=== PATIENT | female | born 1990 | race Two or more races ===

== ENCOUNTER 2018-04-19 16:59 | Observation (INO) | payer OTHER ==
[2018-04-19 18:53] LABS: ABS Basophils 0.1 10^3/ul (0-0.2); ABS Eosinophils 0.1 10^3/ul (0-0.6); ABS Lymphocytes 2.5 10^3/ul (1.0-4.8); ABS Monocytes 0.4 10^3/ul (0-0.8); ABS Neutrophils 4.4 10^3/ul (1.5-7.7); ABS Nucleated RBC 0 10^3/ul; Eosinophil % 1.1 % (0-6); Hematocrit 40 % (35-47); Hemoglobin 13.5 g/dl (12.0-16.0); Lymphocyte % 33.6 % (25-47); Mean Corpuscular HGB Conc 34 g/dl (31-36); Mean Corpuscular Hemoglobin 30 pg (27-31); Mean Corpuscular Volume 89 fL (80-97); Mean Platelet Volume 8.2 um3 (7.4-10.4); Nucleated Red Blood Cells % 0; Platelet Count 283 10^3/ul (150-450); Red Cell Distribution Width 13 % (10.5-15); White Blood Count 7.4 10^3/ul (3.5-10.8)
[2018-04-19 19:06] LABS: INR 0.89 (0.77-1.02)
[2018-04-19 19:16] LABS: EGFR Non-African American 83.1 (>60)
--- NOTE | 2018-04-19 19:36 | RAD ---
INDICATION: Occipital headache and right face/arm/leg numbness COMPARISON: None. TECHNIQUE: Contiguous axial sections of the brain were obtained from the skull base to the vertex without contrast. FINDINGS: The ventricles, cisterns and sulci are within normal limits. The lorenzana-white matter differentiation is adequately maintained and there is no sulcal effacement. No significant focal abnormality or mass effect is present. There is no evidence for intracranial hemorrhage. No significant focal osseous abnormality is present. The visualized portion of the paranasal sinuses appear clear. The mastoid air cells are well aerated bilaterally. IMPRESSION: Normal CT of the brain.
[2018-04-19] MEDS ORDERED: Acetaminophen TAB* 325 MG PO PRN (21:50)
[2018-04-19] MEDS ORDERED: Ondansetron INJ* 2 MG/ML VIAL IV PRN (21:50)
[2018-04-19] MEDS ORDERED: Magnesium Sulfate 2 GM IV* 2 GM/50 ML BAG IVPB ONE (21:55)
--- NOTE | 2018-04-19 21:55 | ED ---
Justine Rodgers Edward, scribed for Andre Henderson MD on 04/19/18 at 1816 . Neurological HPI - HPI Summary HPI Summary: 27 y/o female presents to the ED c/o R side leg, R arm, toes and L leg; numbness starting 2 days ago. Numbness started at R leg, then R arm 1 day ago, then bilateral toes, then L leg started today. R arm numbness @ the R forearm. The numbness is described as a change in strength, where it "feels more forced" for the pt to clench and grab things; like when the "leg goes to sleep". 2 weeks ago pt developed facial numbness due to a cyst under the pt's wisdom tooth @ the R side of her face around the eye; cyst removed and numbness mostly resolved. Associated sx: OH at the back of the head; pt states she typically gets OH more on the R lateral side of the head- this OH feels similar but is located more in the back of the head; lightheadedness with getting out of bed too quickly. - History of Current Complaint Chief Complaint: EDGeneral Stated Complaint: RT SIDE TINGLING Time Seen by Provider: 04/19/18 18:14 Hx Obtained From: Patient Onset/Duration: Started days ago - 2 days Timing: Constant Neurological Deficit Location: RUE, RLE, LLE Headache Location: Occipital (Right) Pain Intensity: 0 Character: Numbness/Tingling Aggravating: Nothing Alleviating: Nothing Associated Signs and Symptoms: Positive: Headache, Numbness, Lightheadness - Allergy/Home Medications Allergies/Adverse Reactions: Allergies Allergy/AdvReac Type Severity Reaction Status Date / Time No Known Allergies Allergy Verified 04/19/18 17:10 Home Medications: Home Medications NK [No Home Medications Reported] 04/19/18 [History Confirmed 04/19/18] PMH/Surg Hx/FS Hx/Imm Hx Previously Healthy: No Endocrine/Hematology History: Denies: Hx Anticoagulant Therapy, Hx Blood Disorders Respiratory History: Denies: Hx Asthma Musculoskeletal History: Denies: Hx Arthritis Neurological History: Denies: Hx Headaches, Hx Migraine Infectious Disease History: No Infectious Disease History: Denies: Traveled Outside the [place] in Last 30 Days - Family History Known Family History: Positive: None - Social History Alcohol Use: None Substance Use Type: Reports: None Smoking Status (MU): Never Smoked Tobacco Review of Systems Constitutional: Negative Eyes: Negative ENT: Negative Cardiovascular: Negative Respiratory: Negative Gastrointestinal: Negative Genitourinary: Negative Musculoskeletal: Negative Skin: Negative Neurological: Other - lightheadedness Positive: Headache, Numbness - R side face, R forearm, R leg and toes Psychological: Normal All Other Systems Reviewed And Are Negative: Yes Physical Exam Triage Information Reviewed: Yes Vital Signs On Initial Exam: Initial Vitals Temp Pulse Resp BP Pulse Ox 98.8 F 76 16 124/78 98 04/19/18 17:05 04/19/18 17:05 04/19/18 17:05 04/19/18 17:05 04/19/18 17:05 Vital Signs Reviewed: Yes Appearance: Positive: Well-Appearing, No Pain Distress Skin: Positive: Warm, Skin Color Reflects Adequate Perfusion, Dry Head/Face: Positive: Normal Head/Face Inspection Eyes: Positive: EOMI, ANATOLIY ENT: Positive: Normal ENT inspection Neck: Positive: Supple, Nontender Respiratory/Lung Sounds: Positive: Clear to Auscultation, Breath Sounds Present Cardiovascular: Positive: RRR Abdomen Description: Positive: Nontender, Soft Bowel Sounds: Positive: Present Musculoskeletal: Positive: Normal, Strength/ROM Intact Neurological: Positive: Sensory/Motor Intact, Alert, Oriented to Person Place, Time Psychiatric: Positive: Affect/Mood Appropriate Diagnostics - Vital Signs Vital Signs Temp Pulse Resp BP Pulse Ox 04/19/18 17:05 98.8 F 76 16 124/78 98 - Laboratory Lab Results: Lab Results 04/19/18 04/19/18 04/19/18 Range/Units 18:45 18:45 18:45 WBC 7.4 (3.5-10.8) 10^3/ul RBC 4.50 (4.00-5.40) 10^6/ul Hgb 13.5 (12.0-16.0) g/dl Hct 40 (35-47) % MCV 89 (80-97) fL MCH 30 (27-31) pg MCHC 34 (31-36) g/dl RDW 13 (10.5-15) % Plt Count 283 (150-450) 10^3/ul MPV 8.2 (7.4-10.4) um3 Neut % (Auto) 59.4 (38-83) % Lymph % (Auto) 33.6 (25-47) % Caswell % (Auto) 5.1 (0-7) % Eos % (Auto) 1.1 (0-6) % Baso % (Auto) 0.8 (0-2) % Absolute Neuts (auto) 4.4 (1.5-7.7) 10^3/ul Absolute Lymphs (auto) 2.5 (1.0-4.8) 10^3/ul Absolute Monos (auto) 0.4 (0-0.8) 10^3/ul Absolute Eos (auto) 0.1 (0-0.6) 10^3/ul Absolute Basos (auto) 0.1 (0-0.2) 10^3/ul Absolute Nucleated RBC 0 10^3/ul Nucleated RBC % 0 INR (Anticoag Therapy) 0.89 (0.77-1.02) APTT 29.5 (26.0-36.3) seconds Sodium 139 (135-145) mmol/L Potassium 4.0 (3.5-5.0) mmol/L Chloride 102 (101-111) mmol/L Carbon Dioxide 28 (22-32) mmol/L Anion Gap 9 (2-11) mmol/L BUN 16 (6-24) mg/dL Creatinine 0.83 (0.51-0.95) mg/dL Est GFR ( Amer) 100.5 (>60) Est GFR (Non-Af Amer) 83.1 (>60) BUN/Creatinine Ratio 19.3 (8-20) Glucose 106 H (70-100) mg/dL Lactic Acid (0.5-2.0) mmol/L Calcium 9.8 (8.6-10.3) mg/dL Magnesium 1.8 L (1.9-2.7) mg/dL Total Bilirubin 0.30 (0.2-1.0) mg/dL AST 22 (13-39) U/L ALT 13 (7-52) U/L Alkaline Phosphatase 49 (34-104) U/L C-Reactive Protein 7.92 (<8.01) mg/L Total Protein 7.4 (6.4-8.9) g/dL Albumin 3.9 (3.2-5.2) g/dL Globulin 3.5 (2-4) g/dL Albumin/Globulin Ratio 1.1 (1-3) TSH 2.25 (0.34-5.60) mcIU/mL Beta HCG, Quant < 0.60 mIU/mL 04/19/18 Range/Units 18:45 WBC (3.5-10.8) 10^3/ul RBC (4.00-5.40) 10^6/ul Hgb (12.0-16.0) g/dl Hct (35-47) % MCV (80-97) fL MCH (27-31) pg MCHC (31-36) g/dl RDW (10.5-15) % Plt Count (150-450) 10^3/ul MPV (7.4-10.4) um3 Neut % (Auto) (38-83) % Lymph % (Auto) (25-47) % Caswell % (Auto) (0-7) % Eos % (Auto) (0-6) % Baso % (Auto) (0-2) % Absolute Neuts (auto) (1.5-7.7) 10^3/ul Absolute Lymphs (auto) (1.0-4.8) 10^3/ul Absolute Monos (auto) (0-0.8) 10^3/ul Absolute Eos (auto) (0-0.6) 10^3/ul Absolute Basos (auto) (0-0.2) 10^3/ul Absolute Nucleated RBC 10^3/ul Nucleated RBC % INR (Anticoag Therapy) (0.77-1.02) APTT (26.0-36.3) seconds Sodium (135-145) mmol/L Potassium (3.5-5.0) mmol/L Chloride (101-111) mmol/L Carbon Dioxide (22-32) mmol/L Anion Gap (2-11) mmol/L BUN (6-24) mg/dL Creatinine (0.51-0.95) mg/dL Est GFR ( Amer) (>60) Est GFR (Non-Af Amer) (>60) BUN/Creatinine Ratio (8-20) Glucose (70-100) mg/dL Lactic Acid 0.7 (0.5-2.0) mmol/L Calcium (8.6-10.3) mg/dL Magnesium (1.9-2.7) mg/dL Total Bilirubin (0.2-1.0) mg/dL AST (13-39) U/L ALT (7-52) U/L Alkaline Phosphatase (34-104) U/L C-Reactive Protein (<8.01) mg/L Total Protein (6.4-8.9) g/dL Albumin (3.2-5.2) g/dL Globulin (2-4) g/dL Albumin/Globulin Ratio (1-3) TSH (0.34-5.60) mcIU/mL Beta HCG, Quant mIU/mL Result Diagrams: 04/19/18 18:45 04/19/18 18:45 Lab Statement: Any lab studies that have been ordered have been reviewed, and results considered in the medical decision making process. - CT BRAIN CT CT Interpretation: No Acute Changes - NORMAL CT OF THE BRAIN CT Interpretation Completed By: Radiologist Re-Evaluation - Re-Evaluation 1 Re-Evaluation Time: 19:34 Comment: discuss plan of care Course/Dx - Course Course Of Treatment: DR BARNES, NEUROLOGY, SAW THE PATIENT IN THE ED. ADMIT HOSPITALIST. - Diagnoses Provider Diagnoses: Paresthesia of right arm and leg - Physician Notifications Discussed Care Of Patient With: Benedict Barnes Time Discussed With Above Provider: 19:30 Instructed by Provider To: MD Will See In ED Discharge - Sign-Out/Discharge Documenting (check all that apply): Discharge/Admit/Transfer - Discharge Plan Condition: Stable Disposition: ADMITTED TO [facility] Referrals: No Primary Care Phys,NOPCP [Primary Care Provider] - - Billing Disposition and Condition Condition: STABLE Disposition: Admitted to [facility] The documentation as recorded by the Justine main Edward accurately reflects the service I personally performed and the decisions made by me, Andre Henderson MD.
[2018-04-19] MEDS ORDERED: Magnesium Sulfate IV* 2 GM in NS 0.9% 100 ML* 100 ML IVPB ONE (22:00)
[2018-04-19] MEDS ORDERED: NS 0.9% 100 ML* 100 ML ONE (22:05)
[2018-04-20] MEDS: AMOXICILLIN 500 MG PO SCH ×2 (00:27→09:05)
--- NOTE | 2018-04-20 02:30 | CONS ---
NEUROLOGY CONSULT REPORT: DATE OF CONSULT: 04/19/18 REQUESTING PHYSICIAN: Dr. Henderson. REASON FOR CONSULT: Numbness in the right arm and leg. HISTORY OF PRESENT ILLNESS: The patient is a 27-year-old right-handed female, who started to feel numbness in the right leg mostly in the distal part and right foot on Monday after she came back from the gym. She then had no other problems until the next morning when she woke up and after a few hours she felt also the same tingling in her distal right arm and right hand. This symptoms continued for the past few days with the fluctuating nature. She states that she usually feels the numbness more when she is lying down. Starting today, she also felt some pain in the same regions that she had numbness. In the past couple of weeks, also she had some numbness in the right side of the face, eventually after seeing a dentist she was found to have a tooth abscess for which she is taking Amoxicillin. At the time of examination she does not have numbness in the face, but states it has not completely resolved and still sometimes feels the numbness. She only has a history of what seems like to be more of a tension type headache happening every 2 weeks or so, 3-4 in intensity, a dull headache, but they do not last more than few hours as taking Tylenol or over-the- counter medications resolve those headaches. They are also not associated with photo or phonophobia. The patient has no headache currently. The patient goes to the gym regularly, but denies any injury or heavy exercise. She sometimes does cardio workout, but also lift weights up to 40 lbs for shoulder press. Denies any pain in the neck or head at this time. PAST MEDICAL HISTORY: Other than headache that was mentioned above is negative. 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 Otherwise, there is no other significant past medical history. MEDICATIONS: The patient only is on Amoxicilline now for her tooth abscess and taking control pills since she was 20. ALLERGIES: No known drug allergies. FAMILY HISTORY: No neurological disorders in the family. Father has history of back pain and probably migraine. 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 The patient does not drink alcohol or smoke. Quit smoking about 2 years ago, was smoking for 4 years. No drugs, rarely smokes MJ. REVIEW OF SYSTEMS: A complete review of systems was reviewed and other than what is mentioned above is negative. PHYSICAL EXAM: Blood pressure is 112/64, respiratory rate 14, pulse rate 61, O2 sat 100%. The patient is awake, alert, and oriented x3. Pupils are symmetric and reactive to light. Extraocular movements are intact. Visual mayo are intact by confrontation. Face is symmetric. V1 to V3 is intact to light touch and pinprick. Tongue is in midline. Palate elevates upward. Strength is 5/5 throughout. Sensation is intact to light touch, pinprick, and temperature in the upper and lower extremities with only feeling slight hyperesthesia in the dorsum part of her right foot. Vibration is intact in the lower extremities. Deep tendon reflexes are 3+ but symmetric in the upper and lower extremities. Babinski sign is negative. [id number] is intact bilaterally. [id number] is normal bilaterally. Gait is narrow based and steady. Straight leg test is negative for any radicular pain. DIAGNOSTIC STUDIES/LAB DATA: WBC 7.4, hemoglobin 13.5, hematocrit 40. Sodium 139, potassium 4, BUN 16, creatinine 0.83, glucose 106, magnesium 1.8, AST 22, ALT 13, alkaline phosphatase 49, TSH 2.25. IMAGING: CT of the head was reported as normal. ASSESSMENT AND PLAN: The patient is a 27-year-old female with history of 4 days of numbness in the distal arm and distal leg. She had also a numbness in the right side of her face that was attributed to a tooth abscess. The CT scan was negative and her neurological exam is normal now other than some hyperesthesia in the right foot. The differential diagnosis, considering the age of the patient, is demyelinating disease. Symmetric hyperreflexia is sometimes seen in young adults specially females, without clear pathology, however, I would like to get an MRI of the C-Spine in addition to the MRI of the brain with and without contrast. History and examination is not suggestive of carotid dissection as there is no headache, or neck pain or Ash's pupils. Also, as she does not have any current headache I do not have a suspicion for venous thrombosis. The patient will be placed on observation to complete the MRI of the brain and C-spine. [id number]/[facility] #: [id number] [facility] HOSPITALMayi
--- NOTE | 2018-04-20 02:55 | HP ---
CC: CHRISTINA Gill; Dr. Barnes* HISTORY AND PHYSICAL: DATE OF ADMISSION: 04/19/18 PRIMARY CARE PROVIDER: CHRISTINA Gill ATTENDING PHYSICIAN WHILE IN THE HOSPITAL: Smith Thurman MD* ( report being dictated by Deacon Calvo NP) CONSULTING NEUROLOGIST: Dr. Barnes. CHIEF COMPLAINT: Right facial, right foot numbness, and right arm numbness. HISTORY OF PRESENT ILLNESS: Ms. Barnard is a 27-year-old female patient. She has no past medical history, no surgical history. She is on control only. She is also on currently amoxicillin for a tooth infection, which she recently had extracted. She is coming into the emergency department today stating that over the last 2 weeks, she has had intermittent numbness in the right forearm, right hand, on the right face, it has been coming and going and also on the top part of her right foot. She says the numbness is described as a pins and tingling sensation in the right foot, in the right forearm, and in the face. She says it has been coming intermittently. It has not been associated with headache. She denied any focal weakness to that right side. No facial drooping and no trouble with speech or changes with visual acuity. She says the numbness was concerning because it just was not going anyway, although she was told by our attendants that the facial numbness could be from the fact that she had a cyst that was ultimately drained by the dentist, but that was taken care of last week and the numbness really has not gone away completely. She denied having any headaches. She denies having any chest pain , shortness of breath. No recent fevers. No neck pain. No neck stiffness. She was again concerned because the numbness in the face really was not going away despite the dental work. She went to her primary today. She says she was seen by somebody other than her primary and was sent to the ER for evaluation. She was evaluated in the ED. Neurology was called. Neurology was concerned and felt that she could need further workup with MRI, so we were asked to evaluate for admission. PAST MEDICAL HISTORY: Denied. PAST SURGICAL HISTORY: Denied. HOME MEDICATIONS: Currently include: 1. Currently control 1 tablet daily. 2. She is on amoxicillin 1 tablet twice a day, but she does not know the dose. We need to clarify this in the morning with her pharmacy. ALLERGIES TO MEDICATIONS: She says she is allergic to one unknown antibiotic. FAMILY HISTORY: Father had a history of headaches. Mother's history was reviewed and she says that her mother was otherwise healthy. SOCIAL HISTORY: She was a smoker, she smoked for about 4 years, quit 2 years ago. Does not drink alcohol. She rarely smokes marijuana. Surrogate decision maker is her boyfriend. REVIEW OF SYSTEMS: There is no documented fever. She denies having any significant weight change. There is no double vision. There was no ear discharge. She denies having any rhinorrhea. No sore throat. No thyroid enlargement. Denies having any chest pain. There is no orthopnea. No nocturnal dyspnea. She denies having any abdominal pain. There is no nausea. There is no vomiting. There is no dysuria. There is no frequency. No seizure. No loss of consciousness. No pruritus and no skin ulcerations. Review of 14 systems completed, all others negative. PHYSICAL EXAMINATION GENERAL: At this time, Ms. Barnard is a 27-year-old female patient. She is sitting in the ED stretcher. She does not appear to be in any acute distress. She is well-nourished, well-developed. VITAL SIGNS: Blood pressure 112/64, pulse 61, respirations 14, O2 sat 100%, temperature 98.8. HEENT: Head: Atraumatic, normocephalic. Eyes: EOMs are intact. Sclerae anicteric, not pale. Throat: Oral mucosa appears to be moist. No oropharyngeal erythema. NECK: Supple. LUNGS: Clear to auscultation. No wheezes, rales, or rhonchi. HEART: Sounds S1, S2. Regular rate and rhythm. No murmurs, rubs, or gallops. ABDOMEN: Soft, flat, nontender. Bowel sounds are present. EXTREMITIES: Pulses were 2+ throughout. She is moving all 4 extremities with 5 /5 strength. NEUROLOGIC: She is awake. She is alert. Her speech is clear. Cranial nerves II through XII are intact. Tongue midline. Speech was again clear. She had 5/ 5 strength in all extremities. Reflexes were 2+ to the patellar reflexes. She did have pinpoint discrimination, but she is subjectively saying that she is experiencing tingling to the top of her right foot, into her right forearm and she says that the sensation on the face on the right side is different than on the left side currently. No other gross focal deficits. No facial drooping. SKIN: Intact. DIAGNOSTIC STUDIES/LAB DATA: WBC 7.4, RBC of 4.50, hemoglobin 13.5, hematocrit 40, platelet count of 283. The INR is 0.89. PTT at 29.5. Sodium 139 , potassium 4, chloride of 102, bicarb 28, BUN 16, creatinine 0.83, glucose 106 , lactic 0.7, calcium 9.9, mag 1.8, total bili is 0.3, AST 22, ALT 13, alk phos 49, CRP is 7.92, albumin was 3.9, beta hCG negative. TSH negative. She did have a brain CT obtained today, which read, impression: Normal CT of the brain. Old medical records were reviewed. ASSESSMENT AND PLAN: Ms. Barnard is a 27-year-old female patient coming into the emergency department today with complaints of numbness of the right face, right forearm area, right arm, and top of her right foot. We were asked to evaluate for admission. She will be admitted under observation status for: 1. Focal numbness. Again, etiology unclear. We did touch base with Dr. Barnes. I think stroke is less likely given her age; however, she is on control, this increases the risk slightly. I have asked her to stop the control until workup is complete. At this point, also multiple sclerosis is on the differential, Dr. Barnes agreed with this and felt that we should go ahead and get an MRI of the brain with and without and of the cervical spine as well and continue to follow. If this is negative, she could certainly follow up with Neurology outpatient for further workup and evaluation. I have ordered neuro checks. I have placed her on telemetry holding off on any vascular imaging unless MRI is positive. 2. DVT prophylaxis, low risk. I ordered SCDs. 3. Code status. Full code. 4. Fluids, electrolytes, and nutrition. I am replacing the magnesium. She can have a regular diet. TIME SPENT: Time spent on the admission 60 minutes, greater than half the time was spent [id number] with the patient obtaining my history and physical; other half time was spent going over the plan of care with the patient and implementing plan of care. I did discuss the plan of care with my attending, Dr. Thurman, he is in agreement. DEACON CALVO NP [id number]/[facility] #: [id number] KIEL
[2018-04-20 05:21] LABS: ABS Basophils 0.1 10^3/ul (0-0.2); ABS Eosinophils 0.2 10^3/ul (0-0.6); ABS Lymphocytes 3.2 10^3/ul (1.0-4.8); ABS Monocytes 0.5 10^3/ul (0-0.8); ABS Neutrophils 3.4 10^3/ul (1.5-7.7); ABS Nucleated RBC 0 10^3/ul; Hematocrit 36 % (35-47); Hemoglobin 12.3 g/dl (12.0-16.0); Lymphocyte % 43.7 % (25-47); Mean Corpuscular HGB Conc 34 g/dl (31-36); Mean Corpuscular Hemoglobin 30 pg (27-31); Mean Corpuscular Volume 88 fL (80-97); Nucleated Red Blood Cells % 0; Platelet Count 237 10^3/ul (150-450); Red Blood Count 4.13 10^6/ul (4.00-5.40); Red Cell Distribution Width 13 % (10.5-15); White Blood Count 7.4 10^3/ul (3.5-10.8)
[2018-04-20 05:24] LABS: INR 0.92 (0.77-1.02)
[2018-04-20 05:37] LABS: EGFR Non-African American 85.5 (>60)
[2018-04-20] MEDS ORDERED: Gadoteridol* (CONTRAST) 279.3 MG/ML 10 ML IV ONE (08:15)
--- NOTE | 2018-04-20 09:18 | RAD ---
HISTORY: weakness, arm and foot COMPARISONS: Head CT dated April 19, 2018 TECHNIQUE: The following sequences were obtained of the head: Sagittal FLAIR images, axial T2-weighted images, axial FLAIR images, axial susceptibility weighted images, axial T1-weighted images. Additionally, axial diffusion-weighted images were obtained with calculated apparent diffusion coefficients. Additionally, sagittal, coronal, and axial T1-weighted images were obtained after contrast enhancement with a gadolinium-based intravenous contrast agent. FINDINGS: HEMORRHAGE/INFARCT: There is no hemorrhage or acute infarct. MASSES/SHIFT: There is no mass or shift. EXTRA-AXIAL SPACES/MENINGES: There are no extra-axial fluid collections. SULCI AND VENTRICLES: The sulci and ventricles are normal in size and position for the patient's stated age. CEREBRUM: There are no focal parenchymal abnormalities. BRAINSTEM: There are no focal parenchymal abnormalities. CEREBELLUM: There are no focal parenchymal abnormalities. The cerebellar tonsils are normal in size and position. SELLA: The sella is normal. PINEAL: The pineal region is clear. CP ANGLE/TEMPORAL BONES: The labyrinthine structures are grossly normal. VESSELS: Normal flow-voids are noted within the visualized vertebral vasculature. DIFFUSION ABNORMALITIES: There are no diffusion abnormalities. PARANASAL SINUSES/MASTOIDS: The paranasal sinuses are clear. ORBITS: The orbits are unremarkable. BONES AND SOFT TISSUE: No bone or soft tissue abnormalities are noted. OTHER: There is no abnormal enhancement. IMPRESSION: NORMAL BRAIN. NO ABNORMAL ENHANCEMENT.
--- NOTE | 2018-04-20 09:21 | RAD ---
HISTORY: weakness, arm and foot COMPARISONS: None TECHNIQUE: The following sequences were obtained of the cervical spine: Sagittal and axial T1- and T2-weighted images, sagittal STIR images, and axial gradient echo images. Additionally, axial and sagittal T1 weighted images were obtained after contrast enhancement with a gadolinium-based intravenous contrast agent.. FINDINGS: The study is limited by patient motion artifact. BRAIN AND SPINAL CORD: The visualized spinal cord is normal in caliber, position, and signal intensity. The visualized portion of the brain is unremarkable. The cerebellar tonsils are normal in position. ALIGNMENT: There is straightening of the normal cervical lordosis. The alignment is otherwise normal. VERTEBRAL BODIES: The bones are normal in signal intensity. There is mild anterolateral marginal osteophyte formation at C5-C6. JOINTS: There is no subluxation or dislocation. MUSCULATURE: Unremarkable INTERVERTEBRAL DISCS: There is loss of intervertebral disc height and T2 signal most pronounced at C3-C4, C4-C5, and C5-C6 AXIAL IMAGES: C2-C3: There is no disc herniation, spinal stenosis, or neuroforaminal narrowing. C3-C4: There is no disc herniation, spinal stenosis, or neuroforaminal narrowing. C4-C5: There is mild broad-based disc osteophyte complex. There is no significant neural foraminal narrowing or central canal stenosis. C5-C6: There is a broad-based disc osteophyte complex. There is no significant neural foraminal narrowing or central canal stenosis. C6-C7: There is no disc herniation, spinal stenosis, or neuroforaminal narrowing. C7-T1: There is no disc herniation, spinal stenosis, or neuroforaminal narrowing. SOFT TISSUES: There is a prominent but not pathologically enlarged level 2 lymph node on the right. OTHER: There is no abnormal enhancement. IMPRESSION: 1. MILD DEGENERATIVE DISC DISEASE MOST PRONOUNCED AT C5-C6. THERE IS NO SIGNIFICANT NEURAL FORAMINAL NARROWING OR CENTRAL CANAL STENOSIS. 2. NO ABNORMAL CORD SIGNAL OR ABNORMAL ENHANCEMENT.
[2018-04-20 11:25] VITALS: BP 104/63
--- NOTE | 2018-04-20 17:36 | PN ---
Progress Note - Progress Note Date of Service: 04/20/18 SOAP: Neurology progress note Date of service: 04/20/18 Subjective: I saw and examined the patient around 11:30am today. She had completed her MRI brain and C-spine. Her symptoms have not changed. Continues to be headache free. Objective: Vital Signs Temp Pulse Resp BP Pulse Ox 97.8 F 80 16 104/63 98 04/20/18 11:22 04/20/18 11:22 04/20/18 11:22 04/20/18 11:22 04/20/18 11:22 Laboratory Last Values WBC 7.4 10^3/ul (3.5-10.8) 04/20/18 05:06 RBC 4.13 10^6/ul (4.00-5.40) 04/20/18 05:06 Hgb 12.3 g/dl (12.0-16.0) 04/20/18 05:06 Hct 36 % (35-47) 04/20/18 05:06 MCV 88 fL (80-97) 04/20/18 05:06 MCH 30 pg (27-31) 04/20/18 05:06 MCHC 34 g/dl (31-36) 04/20/18 05:06 RDW 13 % (10.5-15) 04/20/18 05:06 Plt Count 237 10^3/ul (150-450) 04/20/18 05:06 MPV 8.0 um3 (7.4-10.4) 04/20/18 05:06 Neut % (Auto) 46.5 % (38-83) 04/20/18 05:06 Lymph % (Auto) 43.7 % (25-47) 04/20/18 05:06 Gem % (Auto) 7.0 % (0-7) 04/20/18 05:06 Eos % (Auto) 2.0 % (0-6) 04/20/18 05:06 Baso % (Auto) 0.8 % (0-2) 04/20/18 05:06 Absolute Neuts (auto) 3.4 10^3/ul (1.5-7.7) 04/20/18 05:06 Absolute Lymphs (auto) 3.2 10^3/ul (1.0-4.8) 04/20/18 05:06 Absolute Monos (auto) 0.5 10^3/ul (0-0.8) 04/20/18 05:06 Absolute Eos (auto) 0.2 10^3/ul (0-0.6) 04/20/18 05:06 Absolute Basos (auto) 0.1 10^3/ul (0-0.2) 04/20/18 05:06 Absolute Nucleated RBC 0 10^3/ul 04/20/18 05:06 Nucleated RBC % 0 04/20/18 05:06 INR (Anticoag Therapy) 0.92 (0.77-1.02) 04/20/18 05:06 APTT 29.5 seconds (26.0-36.3) 04/19/18 18:45 Sodium 137 mmol/L (135-145) 04/20/18 05:06 Potassium 3.5 mmol/L (3.5-5.0) 04/20/18 05:06 Chloride 104 mmol/L (101-111) 04/20/18 05:06 Carbon Dioxide 26 mmol/L (22-32) 04/20/18 05:06 Anion Gap 7 mmol/L (2-11) 04/20/18 05:06 BUN 17 mg/dL (6-24) 04/20/18 05:06 Creatinine 0.81 mg/dL (0.51-0.95) 04/20/18 05:06 Est GFR ( Amer) 103.4 (>60) 04/20/18 05:06 Est GFR (Non-Af Amer) 85.5 (>60) 04/20/18 05:06 BUN/Creatinine Ratio 21.0 (8-20) H 04/20/18 05:06 Glucose 91 mg/dL (70-100) 04/20/18 05:06 Hemoglobin A1c 5.3 % (4.0-5.6) 04/20/18 05:06 Lactic Acid 0.7 mmol/L (0.5-2.0) 04/19/18 18:45 Calcium 8.7 mg/dL (8.6-10.3) 04/20/18 05:06 Magnesium 1.8 mg/dL (1.9-2.7) L 04/19/18 18:45 Total Bilirubin 0.30 mg/dL (0.2-1.0) 04/19/18 18:45 AST 22 U/L (13-39) 04/19/18 18:45 ALT 13 U/L (7-52) 04/19/18 18:45 Alkaline Phosphatase 49 U/L (34-104) 04/19/18 18:45 C-Reactive Protein 7.92 mg/L (<8.01) 04/19/18 18:45 Total Protein 7.4 g/dL (6.4-8.9) 04/19/18 18:45 Albumin 3.9 g/dL (3.2-5.2) 04/19/18 18:45 Globulin 3.5 g/dL (2-4) 04/19/18 18:45 Albumin/Globulin Ratio 1.1 (1-3) 04/19/18 18:45 Triglycerides 244 mg/dL 04/20/18 05:06 Cholesterol 209 mg/dL 04/20/18 05:06 LDL Cholesterol 107 mg/dL 04/20/18 05:06 HDL Cholesterol 53.1 mg/dL 04/20/18 05:06 TSH 2.25 mcIU/mL (0.34-5.60) 04/19/18 18:45 Beta HCG, Quant < 0.60 mIU/mL 04/19/18 18:45 MRI brain w/wo contrast: Normal MRI C-spine w/wo contrast: IMPRESSION: 1. MILD DEGENERATIVE DISC DISEASE MOST PRONOUNCED AT C5-C6. THERE IS NO SIGNIFICANT NEURAL FORAMINAL NARROWING OR CENTRAL CANAL STENOSIS. 2. NO ABNORMAL CORD SIGNAL OR ABNORMAL ENHANCEMENT. Exam: Awake, alert, oriented x3. Pupils symmetric and reactive to light. Face symmetric. V1-3 intact to LT and PP. Strength 5/5. Sensation is intact to LT and PP in the upper and LE other than some hypersthesia in the right foot. Coordination and gait intact. Assessment and plan: 27-year-old female with history of few days of subjective numbness in the distal part of right arm/hand and right foot. The concern was for a demyelinating process such as MS which based on the imaging is ruled out. The exact cause of the symptoms remain unclear to me. Anatomically, these localizes to peripheral nerves. I recommended her to avoid heavy excercise and lifting weights in the next couple of weeks. If the symptoms don't resolve or worsen to inform her PCP for referral for a neurology follow up.
--- NOTE | 2018-04-21 08:42 | DS ---
CC: Denisha Vanegas NP * DISCHARGE SUMMARY: DATE OF ADMISSION: 04/19/18 DATE OF DISCHARGE: 04/20/18 PRIMARY CARE PROVIDER: Denisha Vanegas NP MY ATTENDING WHILE IN THE HOSPITAL: Bertha Mendoza MD * (DICTATED BY ERIN MUNSON) PRIMARY DISCHARGE DIAGNOSIS: Peripheral nerve palsy. SECONDARY DISCHARGE DIAGNOSIS: Dental abscess. STUDIES DONE WHILE IN THE HOSPITAL: Brain CT from 04/19/[address] of the brain. Brain MRI from 04/19/18, read as normal brain, no abnormal enhancement. Cervical spine MRI from 04/19/18 read as mild degenerative disk disease, most pronounced at C5-C6. There is no significant neuroforaminal narrowing or central canal stenosis. No abnormal spinal cord abnormal enhancement. MEDICATIONS AT DISCHARGE: 1. Amoxicillin 500 mg p.o. t.i.d. 2. Tylenol 650 mg q. 4 hours as needed. 3. control, unknown brand. HOSPITAL COURSE: This is a brief summary of patient's presentation. For more details, please see the history and physical from Deacon Calvo NP from . In brief, the patient is a 27-year-old female with past medical history significant for nothing except for a tooth infection which she was recently diagnosed with, who came to the emergency department with intermittent numbness in her right forearm, right hand, and right face as well as dorsum of her right foot. It was a pins and needles sensation. She had recently been diagnosed with a tooth abscess that had been believed to be causing the numbness in her right face. This was persistent, intermittent and not overly concerning at rest. The patient had a brain CT as above. The patient was seen in consultation by Dr. Benedict Barnes of Neurology who recommended brain and cervical spine MRI to rule out demyelinating disease given patient's age and presentation. The patient was admitted to the hospital, had no vital sign abnormalities, no laboratory value abnormalities. Of note, the patient had brain and cervical MRI that were normal as above. Dr. Barnes believes that the patient's symptoms were related to a peripheral nerve palsy, possibly related to overexertion. The patient was recommended to stop exerting herself for 2 weeks and assess for resolution of her symptoms. The patient was stable now for discharge on 04/20/18. PHYSICAL EXAM ON DAY OF DISCHARGE: General: The patient is a 27-year-old female who appears stated age, sitting comfortably in bed, in no acute distress. Vital signs at the time of discharge: Temperature 97.8, pulse rate 80, respiratory rate 16, oxygen saturation 98% on room air, blood pressure 104/ 63. HEENT: Head: Normocephalic, atraumatic. Sclerae are anicteric. No conjunctival injection. Nasal mucosa moist. Oral mucosa moist. No pharyngeal erythema, discharge or exudate. Neck: Supple, nontender. No lymphadenopathy. No carotid bruit auscultated. No spinous process tenderness. No JVD. Cardiac: Regular rate and rhythm. No clicks, murmurs, gallops, or rubs. Pulses 2+ bilaterally in dorsalis pedis, posterior tibialis, and radial areas. Respiratory: Clear to auscultation bilaterally. No wheezes, rales or rhonchi. Good air exchange bilaterally. Abdomen: Soft, nontender, nondistended. Bowel sounds present, normoactive in all 4 quadrants. No hepatosplenomegaly. No abdominal bruits auscultated. No hepatojugular reflux. Genitourinary: No suprapubic or CVA tenderness. Skin: Clean, dry, and intact. No rash. Neuro: Cranial nerves II through XII intact. No numbness or tingling on the right side of the body aside from the dorsum of the foot. Normal strength, normal gait. Cerebellar testing performed without difficulty. 2+ reflex in bilateral biceps , patellar, and Achillis areas. Psychiatric: Pleasant and cooperative. DISCHARGE PLAN: The patient will be discharged to home. The patient will be instructed as above to refrain from overexertion for 2 weeks and see if her peripheral nerve palsy is resolved. The patient should follow up with primary care provider around this time and should have further workup with possible nerve conduction studies and laboratory testing for peripheral neuropathy if there is no resolution of her symptoms. The patient should continue with amoxicillin. The patient does not need to stop taking her control. The patient should engage in activities as tolerated and have a regular unrestricted diet. TIME SPENT: Approximately 60 minutes were spent on this discharge, 30 of which were spent [id number] with the patient obtaining history and physical and discussing treatment plan. ERIN MUNSON [id number]/CARLENE #: [id number] KIEL
== END 2018-04-20 14:00 | disposition home or self-care (01) ==
LOC: ED 16:59 → MEDTELE 21:45
PROVIDERS: ADMIT Student in an Organized Health Care Education/Training Program; ATTEND Student in an Organized Health Care Education/Training Program
DX: G58.9 Mononeuropathy, unspecified (principal); K04.7 Periapical abscess without sinus; R20.0 Anesthesia of skin; R51 Headache; M50.322 Other cervical disc degeneration at C5-C6 level; Z87.891 Personal history of nicotine dependence; Z79.899 Other long term (current) drug therapy; R42 Dizziness and giddiness
CPT/HCPCS: 36415; 70450; 70553; 72156; 80048; 80053; 80061; 83036; 83605; 83735; 84443; 84702; 85025; 85610; 85730; 86140; 96365; 99283; A9270-GY; A9579; G0378; J3475

== ENCOUNTER 2018-04-27 02:20 | Emergency (ER) | payer OTHER ==
--- OUTSIDE RECORDS SUMMARY | 2018-04-27 02:33 | XMS REPORT ---
:1990 External Reference #:[id number] Author Organization [employer] Address [address] [facility] [place] [address] Phone [phone] Care Team Providers Name Role Phone Anthony Escudero MD Primary Care Physician Unavailable Payers Type Date Identification Numbers Payment Provider Subscriber Commercial Policy Number: [id number] [employer]ell Cav[employer] Number: [id number] [id number] PayID: [id number] [place] [address] Problems Description No Information Family History Date Family Member(s) Problem(s) Comments Father 59 Father No Current Problems Mother No Current Problems Mother 54 First Brother 18 First Brother No Current Problems First Sister 23 First Sister No Current Problems Second Sister 22 Second Sister No Current Problems Social History Type Date Description Comments Marital Status Single Lives With Boyfriend 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 ETOH Use Occasionally consumes alcohol Smoking Patient is a former smoker Recreational Drug Use Denies Drug Use Smoking Patient is a former smoker quit 2 yrs ago Started at age 21 Exercise Type/Frequency Exercises regularly run, weight, yoga Allergies, Adverse Reactions, Alerts Date Description Reaction Status Severity Comments 01/31/2018 NKDA active Medications Medication Date Status Form Strength Qnty SIG Indications Ordering Provider Indira Active Tablets 3-0.02mg Unknown Vital Signs Date Vital Result Comment 04/04/2018 Height 63 inches 5'3" Weight 140.19 lb Heart Rate 84 /min BP Systolic Sitting 116 mmHg BP Diastolic Sitting 80 mmHg Body Temperature 98.6 F O2 % BldC Oximetry 98 % BMI (Body Mass Index) 24.8 kg/m2 03/20/2018 Height 63 inches 5'3" Weight 142.38 lb Heart Rate 80 /min BP Systolic 116 mmHg BP Diastolic 68 mmHg Body Temperature 98.8 F O2 % BldC Oximetry 97 % BMI (Body Mass Index) 25.2 kg/m2 01/31/2018 Height 63 inches 5'3" Weight 140.25 lb Heart Rate 72 /min BP Systolic Sitting 104 mmHg BP Diastolic Sitting 72 mmHg O2 % BldC Oximetry 98 % BMI (Body Mass Index) 24.8 kg/m2 Waist Circumference 28 Results Test Date Test Result H/L Range Note Laboratory test finding 04/04/2018 Cytology <pending> Lipid Profile (Trig/Chol/HDL) 03/28/2018 Triglycerides 198 mg/dL 1 Cholesterol 250 mg/dL 2 HDL Cholesterol 62.2 mg/dL 3 LDL Cholesterol 148 mg/dL 4 Laboratory test finding 03/28/2018 Vitamin D Total 25(Oh) 24.1 ng/mL 20- 50 Lipid Profile (Trig/Chol/HDL) 01/24/2018 Triglycerides 221 mg/dL 5 Cholesterol 245 mg/dL 6 HDL Cholesterol 67.5 mg/dL 7 LDL Cholesterol 133 mg/dL 8 Laboratory test finding 01/24/2018 Glucose 85 mg/dL 70-100 9 1 Desirable: <150 Borderline High: 150-199 High: 200-499 Very High: >500 2 Desirable: <200 Borderline High: 200-239 High: >239 3 Low: <40 Desirable: 40-60 High: >60 4 Desirable: <100 Near Optimal: 100-129 Borderline High: 130-159 High: 160-189 Very High: >189 5 Desirable: <150 Borderline High: 150-199 High: 200-499 Very High: >500 6 Desirable: <200 Borderline High: 200-239 High: >239 7 Low: <40 Desirable: 40-60 High: >60 8 Desirable: <100 Near Optimal: 100-129 Borderline High: 130-159 High: 160-189 Very High: >189 9 FASTING 10 HOUR Procedures Date CPT Code Description Status 01/31/2018 56858 Admin & Interp Of Health Risk Assessment w/ Patient Completed Encounters Type Date Location Provider CPT E/M Dx Office Visit 03/20/2018 [facility] Internal Medicine Solitario Sheehan, [address] R12 10:00a - [place] Office Visit 01/31/2018 [facility] Internal Medicine ROSELIA Gill [address] Z00.01 9:00a - [address] E78.5 E55.9 Plan of Care 04/04/2018 - Denisha Vanegas, [id number] Encntr for mechanical car checker exam (general) (routine) w /o abn findingsComments:~B_ROUTINE GYNE EXAM:~b_You have had your pap smear today with a test for infectionThe office will contact you with the results. If this is normal we will repeat it in 3 years.Follow up:as [id number] Hyperlipidemia, unspecifiedComments:~B_DYSLIPIDEMIA:~b_Your cholesterol and triglyceride levels are still elevated We discussed effect of regular aerobic exercise Exercise: Moderate aerobic exercise sustaining moderate shortness of breath (able to converse) recommended for 30 min daily at least 5 days/ week. Diet:Avoid eating or snacking to satiety.Avoid concentrated sweets, dietary fats, added sugars, and added saltThe "Mediterranean diet" is recommended: this diet in high in vegetables, fruits, nuts and grains ( important sources of dietary fats), low to moderate amount of white meat, fish and dairy, minimum amount of dark meat.Please refer to [email or web address] Will recheck your lipid in2 month from now.Order sentPlease follow up with development eng at [place].Z79.3 care home ( current) use of hormonal contraceptivesComments:Please call if you consider seen a women's health specialist for our complaints
--- OUTSIDE RECORDS SUMMARY | 2018-04-27 02:33 | XMS REPORT ---
:1990 External Reference #:[id number] Author Organization [employer] Address [address] [facility] [place] [address] Phone [phone] Care Team Providers Name Role Phone Anthony Escudero MD Primary Care Physician Unavailable Payers Type Date Identification Numbers Payment Provider Subscriber Commercial Policy Number: [id number] [employer] Jewell Armando Group Number: [id number] [address] PayID: [id number] [place] [address] Problems Description No Information Family History Date [...] Ordering Provider Indira Active Tablets 3-0.02mg Unknown Advil Active Tablets 200mg as needed Unknown Amoxicillin Active Capsules 500mg almost Unknown 00 finished Vital Signs Date Vital Result Comment 04/19/2018 Height 63 inches 5'3" Weight 142.00 lb Heart Rate 93 /min BP Systolic 110 mmHg BP Diastolic 60 mmHg O2 % BldC Oximetry 97 % BMI (Body Mass Index) 25.2 kg/m2 04/04/2018 Height 63 inches 5'3" Weight 140.19 [...] Test Result H/L Range Note Laboratory test 04/05/2018 Cytology SEE RESULT BELOW 1, 2 finding GC/Chlamydia 04/04/2018 Chlamydia Negative Negative 1 Amplified Rna trachomatis Rna Neisseria gonorrhoeae (GC) Rna Negative Negative 1 Laboratory test finding 04/04/2018 Cytology <pending> 1 Lipid Profile (Trig/Chol/HDL) 03/28/2018 Triglycerides 198 mg/dL 3 Cholesterol 250 mg/dL 4 HDL Cholesterol 62.2 mg/dL 5 LDL Cholesterol 148 mg/dL 6 Laboratory test finding 03/28/2018 Vitamin D Total 25(Oh) 24.1 ng/mL 20- 50 Lipid Profile (Trig/Chol/HDL) 01/24/2018 Triglycerides 221 mg/dL 7 Cholesterol 245 mg/dL 8 HDL Cholesterol 67.5 mg/dL 9 LDL Cholesterol 133 mg/dL 10 Laboratory test finding 01/24/2018 Glucose 85 mg/dL 70-100 11 1 [id number] 2 SEE RESULT BELOW Name: JEWELL ARMANDO : [address]: Denisha Vanegas NP Acct: [id number] Unit: [id number] AGE: 27 Location: [facility] Re04/04/18 SEX: F Status: REG REF SPEC: [id number] CHRIS: 04/05/18 [facility] DR: Denisha Vanegas NP REQ: [id number] RECD: 04/05/18 STATUS: SOUT _ ORDERED: TP IMAGE ANALYS COMMENTS: [id number] Negative for Intraepithelial lesion or Malignancy A. Ectocervical/Endocervical Specimen Adequacy: Satisfactory of evaluation Transformation zone component identified Patient Information: HPV: Thin Layer Pap Test w/reflex to high risk HPV RNA testing when ASCUS Actual Specimen Date: 04/05/18 LMP If Unknown: 2 wks ago Spec Date if unknown: 2014 ?: N Post Menopausal?: N Hysterectomy?: N Previous Abnormal Pap Smears?:N Signed by and Reported on: JEANNA Chairez (ASCP) [id number] This Pap test was evaluated with the assistance of the [employer] Test Imaging System. Due to cytologic findings at the bar and filler assembler microscope, comprehensive manual rescreening by a Development Chemist may be required. The Pap Smear is a screening test designed to aid in the detection of premalignant and malignant conditions of the uterine cervix. It is not a diagnostic procedure and should not be used as the sole means of detecting cervical cancer. Both false- positive and false- negative reports do occur. Depending on your risk status, a Pap smear should be obtained and evaluated every 1-3 years. END OF REPORT DEPARTMENT OF PATHOLOGY, [address] [place] [address] Rubén Casillas M.D. Director [facility] # [id number] 3 Desirable: <150 Borderline High: 150-199 High: 200-499 Very High: >500 4 Desirable: <200 Borderline High: 200-239 High: >239 5 Low: <40 Desirable: 40-60 High: >60 6 Desirable: <100 Near Optimal: 100-129 Borderline High: 130-159 High: 160-189 Very High: >189 7 Desirable: <150 Borderline High: 150-199 High: 200-499 Very High: >500 8 Desirable: <200 Borderline High: 200-239 High: >239 9 Low: <40 Desirable: 40-60 High: >60 10 Desirable: <100 Near Optimal: 100-129 Borderline High: 130-159 High: 160-189 Very High: >189 11 FASTING 10 HOUR Procedures Date CPT Code Description Status 01/31/2018 24948 Admin & Interp Of Health Risk Assessment w/ Patient Completed Encounters Type Date Location Provider CPT E/M Dx Office Visit 03/20/2018 [facility] Internal Medicine Solitario Sheehan, [address] R12 10:00a - [place] Office Visit 01/31/2018 [facility] Internal Medicine ROSELIA Gill [address] Z00.01 9:00a - [address] E78.5 E55.9 Plan of Care 04/19/2018 - Rajan Ponce M.D.M79.2 Neuralgia and neuritis, unspecifiedComments:CVA or cervical lesions to be ruled out
[2018-04-27] MEDS ORDERED: LORazepam TAB(*) 1 MG PO ONE (02:54)
--- NOTE | 2018-04-27 03:07 | ED ---
Shortness of Breath - HPI Summary HPI Summary: Pt is a 27 y/o F w/ c/o SOB onsetting two hours ago. Pt was at [facility] last week for a tingling sensation on the right side of her body. She was informed to return to ED for symptoms such as SOB, which prompted her to come to ED today. Pt was trying to go to sleep and was feeling alright at the time. However, SOB onset as she was trying to sleep. She describes SOB as being, "unable to get a full cycle of breath". She notes throat tightness and could not swallow at the time. In the room, she states that these symptoms have resolved. She notes that this current episode feels similar to previous panic attacks she has experienced but notes her panic attacks normally last 15 minutes. On triage, pt denies pain. Pt denies cough, chest pain, nausea, vomiting, abdominal pain. Per triage, pt is not drooling nor producing garbled speech. She denies Hx of respiratory problems such as asthma. - History of Current Complaint Chief Complaint: EDShortnessOfBreath Time Seen by Provider: 04/27/18 02:46 Hx Obtained From: Patient Onset/Duration: Sudden Onset, Lasting Hours - 2 hours, Still Present Current Severity: Mild - Notes some SOB still present but denies pain Aggrevating Factors: Nothing Alleviating Factors: Nothing - Allergy/Home Medications Allergies/Adverse Reactions: Allergies Allergy/AdvReac Type Severity Reaction Status Date / Time No Known Allergies Allergy Verified 04/27/18 02:22 PMH/Surg Hx/FS Hx/Imm Hx Endocrine/Hematology History: Denies: Hx Anticoagulant Therapy, Hx Blood Disorders, Hx Diabetes Cardiovascular History: Denies: Hx Hypertension, Hx Pacemaker/ICD Respiratory History: Denies: Hx Asthma History: Denies: Hx Renal Disease Musculoskeletal History: Denies: Hx Arthritis Sensory History: Reports: Hx Contacts or Glasses Denies: Hx Hearing Aid Opthamlomology History: Reports: Hx Contacts or Glasses Neurological History: Denies: Hx Headaches, Hx Migraine Psychiatric History: Reports: Hx Anxiety, Hx Depression Denies: Hx Panic Disorder - Surgical History Surgery Procedure, Year, and Place: mole removal on right forearm 06/2017. wisdom teeth Hx Anesthesia Reactions: No Infectious Disease History: No Infectious Disease History: Denies: Traveled Outside the [place] in Last 30 Days - Family History Known Family History: Negative: Blood Disorder - Social History Alcohol Use: Occasionally Substance Use Type: Reports: None Smoking Status (MU): Never Smoked Tobacco Review of Systems Positive: Other - throat tightness and inability to swallow at time of episode, states resolved in room NEGATIVE: drooling, garbled speech Negative: Chest Pain Positive: Shortness Of Breath. Negative: Cough Negative: Abdominal Pain, Vomiting, Nausea All Other Systems Reviewed And Are Negative: Yes Physical Exam - Summary Physical Exam Summary: Appearance: Well-appearing, Well-nourished, lying in bed comfortably Skin: Warm, dry, no obvious rash Eyes: sclera anicteric, no conjunctival pallor ENT: mucous membranes moist, pharynx appears normal Neck: Supple, nontender Respiratory: Clear to auscultation, no signs of respiratory distress Cardiovascular: Normal S1, S2. No murmurs. Normal distal pulses in tibial and radial bilaterally. Abdomen: Soft, nontender, normal active bowel sounds present Musculoskeletal: Normal, Strength/ROM Intact Neurological: A&Ox3, awake and alert, mentation is normal, speech is fluent and appropriate Psychiatric: affect is normal, does not appear anxious or depressed Triage Information Reviewed: Yes Vital Signs On Initial Exam: Initial Vitals Temp Pulse Resp BP Pulse Ox 97.9 F 87 15 118/77 99 04/27/18 02:22 04/27/18 02:22 04/27/18 02:22 04/27/18 02:22 04/27/18 02:22 Vital Signs Reviewed: Yes Diagnostics - Vital Signs Vital Signs Temp Pulse Resp BP Pulse Ox 04/27/18 02:22 97.9 F 87 15 118/77 99 - Laboratory Lab Statement: Any lab studies that have been ordered have been reviewed, and results considered in the medical decision making process. Course/Dx - Diagnoses Provider Diagnoses: Panic attack Discharge - Sign-Out/Discharge Documenting (check all that apply): Patient Departure - Discharge Plan Condition: Good Disposition: HOME Patient Education Materials: Panic Attack (ED) Referrals: Denisha Vanegas NP [Primary Care Provider] - - Billing Disposition and Condition Condition: GOOD Disposition: Home
[2018-04-27 03:23] VITALS: BP 114/72
== END 2018-04-27 03:22 | disposition home or self-care (01) ==
LOC: ED 02:20
DX: F41.0 Panic disorder [episodic paroxysmal anxiety] (principal)
CPT/HCPCS: 99282